=== PATIENT | male | born 1945 | race Caucasian/White ===

== ENCOUNTER 2022-10-05 16:35 | Emergency (ER) | payer MEDICARE, OTHER ==
[~2022-10-05] VITALS: Ht 182.9 cm; Wt 100.0 kg
[2022-10-05] MEDS ORDERED: normal saline 1000ML IV soln IVB ONE ×2 (16:50→20:00)
[2022-10-05 17:35] LABS: BASOPHILS % (AUTO) 0.3 % (0-1); EOSINOPHILS # (AUTO) 0.1 X10'3 (0-0.9); EOSINOPHILS % (AUTO) 0.9 % (0-6); HEMOGLOBIN 14.1 g/dl (14.0-17.9); LYMPHOCYTES # (AUTO) 0.8 X10'3 (1.1-4.8); LYMPHOCYTES % (AUTO) 8.5 % (21-51); MEAN CORPUSCULAR HEMOGLOBIN 30.7 PG (27.0-31.0); MEAN CORPUSCULAR HGB CONC 33.6 g/dL (33.0-36.5); MEAN CORPUSCULAR VOLUME 91.6 FL (78-98); MEAN PLATELET VOLUME 8.3 FL (7.4-10.4); MONOCYTES # (AUTO) 0.6 X10'3 (0-0.9); MONOCYTES % (AUTO) 7.1 % (2-12); NEUTROPHILS # (AUTO) 7.4 X10'3 (1.8-7.7); NEUTROPHILS % (AUTO) 83.2 % (42-75); PLATELET COUNT 169 X10'3 (140-440); RED BLOOD COUNT 4.59 X10'6 (4.70-6.10); RED CELL DISTRIBUTION WIDTH 14.1 % (11.5-14.5); WHITE BLOOD COUNT 8.9 X10'3 (4.5-11.0)
[2022-10-05 17:51] LABS: ALANINE AMINOTRANSFERASE 43 U/L (12-78); ALBUMIN 4.2 G/DL (3.4-5.0); ALBUMIN/GLOBULIN RATIO 1.4 (1.1-1.5); ALKALINE PHOSPHATASE 69 IU/L (46-116); ANION GAP 12 (8-16); ASPARTATE AMINO TRANSFERASE 27 U/L (10-37); BILIRUBIN,TOTAL 0.5 MG/DL (0.1-1.0); BLOOD UREA NITROGEN 31 MG/DL (7-18); BUN/CREATININE RATIO 27.7 (10.0-20.0); CALCIUM 8.8 MG/DL (8.5-10.1); CHLORIDE 112 MMOL/L (99-107); CREATININE 1.12 MG/DL (0.60-1.10); GLUCOSE 108 MG/DL (70-104); POTASSIUM 3.8 MMOL/L (3.5-5.1); SODIUM 147 MMOL/L (135-145); TOTAL CARBON DIOXIDE 23.3 MMOL/L (24-32); TOTAL PROTEIN 7.3 G/DL (6.4-8.2); eGFR 64 ML/MIN
--- NOTE | 2022-10-05 19:20 | NUR ---
EMS BROUGHT TO PT TO ROOM 5
[2022-10-05] MEDS ORDERED: sodium chloride 0.45% 1,000 ML in sodium chloride 0.45% 1,000 ML IV ONE (19:25)
--- NOTE | 2022-10-05 19:25 | NUR ---
PT UP TO BEDSIDE COMMODE WITHOUT ASSIST
--- NOTE | 2022-10-05 19:35 | NUR ---
PT UP TO BEDSIDE COMMODE, HAD RUNNY BROWN STOOL
[2022-10-05] MEDS ORDERED: loperamide 2mg capsule PO ONE (19:40)
--- NOTE | 2022-10-05 20:12 | NUR ---
PER DR TREJO, GIVE 1/2 NS OVER 1 HR A BOLUS, NOT THE 125/HR ORDERED.
[2022-10-05] MEDS ORDERED: PANT40TA54 PO (20:18)
[2022-10-05] MEDS ORDERED: FLO0.4C PO (20:18)
[2022-10-05] MEDS ORDERED: METO-384 PO (20:18)
[2022-10-05] MEDS ORDERED: LOSA25TA41 PO (20:18)
[2022-10-05] MEDS ORDERED: OXYB5TAB16 PO (20:18)
[2022-10-05] MEDS ORDERED: LEVO150T8 PO (20:18)
[2022-10-05] MEDS ORDERED: ALLO300T8 PO (20:18)
[2022-10-05] MEDS ORDERED: SIMV-42 PO (20:18)
[2022-10-05 20:59] VITALS: BP 136/71
== END 2022-10-05 21:01 | disposition home or self-care (01) ==
LOC: ER 16:35
DX: E86.0 Dehydration (principal); I51.9 Heart disease, unspecified; Z79.899 Other long term (current) drug therapy
CPT/HCPCS: 36415; 71045; 80053; 83880; 84145; 84484; 85025; 93005; 99285; J3490; J7030